=== PATIENT | female | born 1975 | race Caucasian/White ===

== ENCOUNTER 2017-04-05 14:22 | Emergency (ER) | payer BC ==
[2017-04-05 14:28] VITALS: BP 121/69
--- NOTE | 2017-04-05 16:40 | ER Document Report ---
HPI - HPI Patient complains to provider of: Headache Onset: Other - 1 month Onset/Duration: Waxing and waning Quality of pain: Achy Pain Level: 2 Context: Patient presents complaining of headache pain off and on over the past month that seems to have worsened over the past week. Patient additionally complains of right ear pain that occasionally will go behind her eyes and affect the other ear as well. Patient does report occasional popping sounds to the ear. Patient does have a history of MS as well as migraines. Patient took Fioricet while waiting for room and states that the headache pain is almost completely resolved at this time. Patient's daughter is at bedside who is very anxious about patient's headache symptoms. Associated Symptoms: Earache, Headache, Rhinnorhea. denies: Chest pain, Nonproductive cough, Productive cough, Fever, Sore throat Exacerbated by: Denies Relieved by: Denies Similar symptoms previously: Yes Recently seen / treated by doctor: No - ROS ROS below otherwise negative: Yes Systems Reviewed and Negative: Yes All other systems reviewed and negative - CONSTITUTIONAL Constitutional: DENIES: Fever, Chills - EENT EENT: REPORTS: Ear Pain, Congestion. DENIES: Sore Throat - NEURO Neurology: REPORTS: Headache. DENIES: Weakness, Vision blurred - RESPIRATORY Respiratory: DENIES: Coughing - GASTROINTESTINAL Gastrointestinal: DENIES: Nausea, Patient vomiting, Diarrhea - REPRODUCTIVE Reproductive: DENIES: : - MUSCULOSKELETAL Musculoskeletal: DENIES: Back Pain, Neck Pain - DERM Skin Color: Normal Skin Problems: None Past Medical History - General Information source: Patient - Social History Smoking Status: Current Every Day Smoker Smoking Education Provided: Yes Frequency of alcohol use: None Drug Abuse: None Lives with: Family Family History: Reviewed & Not Pertinent - Medical History Medical History: Other - MS - Past Medical History Cardiac Medical History: Denies: Hx Coronary Artery Disease, Hx Heart Attack, Hx Hypertension Pulmonary Medical History: Denies: Hx Asthma, Hx Bronchitis, Hx COPD, Hx Pneumonia Neurological Medical History: Denies: Hx Cerebrovascular Accident, Hx Seizures Endocrine Medical History: Reports: Hx Hyperthyroidism Musculoskeltal Medical History: Denies Hx Arthritis Past Surgical History: Reports: Hx Oral Surgery, Hx Tonsillectomy, Hx Tubal Ligation. Denies: Hx Pacemaker - Immunizations Hx Diphtheria, Pertussis, Tetanus Vaccination: No Vertical Provider Document - CONSTITUTIONAL Agree With Documented VS: Yes Exam Limitations: No Limitations General Appearance: WD/WN, No Apparent Distress - INFECTION CONTROL TRAVEL OUTSIDE OF THE [place] IN LAST 30 DAYS: No - HEENT HEENT: Atraumatic, Normocephalic. negative: Pharyngeal Exudate, Pharyngeal Tenderness, Tympanic Membrane Red, Tympanic Membrane Bulging Mouth Diagram: 1 - Dental decay Notes: No pain with movement of the ears bilaterally Patient does have bilateral TMJ joint popping with range of motion no meningismus - NECK Neck: Normal Inspection, Supple. negative: Lymphadenopathy-Left, Lymphadenopathy-Right Notes: No meningismus - RESPIRATORY Respiratory: Breath Sounds Normal, No Respiratory Distress O2 Sat by Pulse Oximetry: 100 - CARDIOVASCULAR Cardiovascular: Regular Rate, Regular Rhythm, No Murmur - BACK Back: Normal Inspection - MUSCULOSKELETAL/EXTREMETIES Musculoskeletal/Extremeties: MARCO WARREN - NEURO Level of Consciousness: Awake, Alert, Appropriate Motor/Sensory: No Motor Deficit - DERM Integumentary: Warm, Dry, No Rash Course - Re-evaluation Re-evalutation: 04/05/17 16:[address] Emery regarding patient presentation. Agrees with plan to CT image of the head 04/05/17 17:42 Patient does report popping occasionally in the ears. Patient does report chronic sinus issues. Will cover in case for dental infection (given poor dentition) as well as possible eustation tube dysfunction as a source of patient 's pain and popping sensation in her ear. Advised that 1 of her medications that she is currently taking does have the side effect of causing headaches. Patient encouraged to follow-up with her neurologist for further evaluation of her chronic headache symptoms as well as her medication regimen. Patient states that she is ready to go home would like to be discharged at this time. No concern for encephalitis or meningitis at this time. 04/05/17 17:44 - Vital Signs Vital signs: Temp Pulse Resp BP Pulse Ox 98.5 F 97 16 121/69 100 04/05/17 14:26 04/05/17 14:26 04/05/17 14:26 04/05/17 14:26 04/05/17 14:26 - Diagnostic Test Radiology reviewed: Reports reviewed Discharge - Discharge Clinical Impression: Popping of right ear, Hx of multiple sclerosis, Dental caries Headache Qualifiers: Headache type: unspecified Headache chronicity pattern: unspecified pattern Intractability: not intractable Qualified Code(s): R51 - Headache Condition: Stable Disposition: HOME, SELF-CARE Instructions: Amoxicillin ([facility]), Headache ([facility]), Toothache ([facility]) Additional Instructions: Return immediately for any new or worsening symptoms Followup with your primary care provider, call tomorrow to make a followup appointment Follow-up with your neurologist for a recheck. Take your Fioricet they have at home as prescribed to help with her headaches Prescriptions: Amoxicillin 500 mg PO TID #30 tablet Cetirizine HCl [Zyrtec 10 mg Tablet] 1 tab PO DAILY #15 tablet Forms: Smoking Cessation Education Referrals: BRUNA ESPINOZA MD [Primary Care Provider] - Follow up as needed ASHLIE MATA MD [ACTIVE STAFF] - Follow up as needed DONNIE RAJAN MD [EMERITUS] - Follow up tomorrow
--- NOTE | 2017-04-05 17:14 | RADIOLOGY REPORT (SQ) ---
EXAM DESCRIPTION: CT HEAD WITHOUT COMPLETED DATE/TIME: 04/05/2017 4:57 pm REASON FOR STUDY: REIS, hx MS COMPARISON: CT brain 03/02/2014, 10/15/2010 TECHNIQUE: Axial images acquired through the brain without intravenous contrast. Images reviewed wi th bone, brain and subdural windows. Images stored on PACS. All CT scanners at this facility use dose modulation, iterative reconstruction, and/or weight based d osing when appropriate to reduce radiation dose to as low as reasonably achievable (ALARA). [facility]: Dose Right [facility]: CareDose [facility]: Dose Right [facility]: Teradose 4D [facility]: Monkey Bizness RADIATION DOSE: CT Rad equipment meets quality standard of care and radiation dose reduction techniq ues were employed. CTDIvol: 64.6 mGy. DLP: 1034 mGy-cm. mGy. LIMITATIONS: None. FINDINGS: VENTRICLES: Normal size and contour. CEREBRUM: Spotty low attenuation in the bifrontal and biparietal, and left posterior temporal subcort ical and deep white matter compatible with demyelinating lesions from a mass. No CT areas of acute la rge territory ischemic change, acute intracranial hemorrhage, mass effect, or midline shift. CEREBELLUM: No masses. No hemorrhage. No alteration of density. No evidence for acute infarction. EXTRAAXIAL SPACES: No fluid collections. No masses. ORBITS AND GLOBE: No intra- or extraconal masses. Normal contour of globe without masses. CALVARIUM: No fracture. PARANASAL SINUSES: No fluid or mucosal thickening. SOFT TISSUES: No mass or hematoma. OTHER: No other significant finding. IMPRESSION: White matter lesions compatible with clinical history of an mass. No acute large territory ischemic change, acute intracranial hemorrhage, mass effect, or midline shif t. EVIDENCE OF ACUTE STROKE: NO. COMMENT: Quality ID # [id number]: Final reports with documentation of one or more dose reduction techniques (e.g., Automated exposure control, adjustment of the mA and/or kV according to patient size, use of iterative reconstruction technique) TECHNICAL DOCUMENTATION: JOB ID: [id number] [employer]- All Rights Reserved Reading location - IP/workstation name: [email or web address]
[2017-04-05] MEDS ORDERED: AMOXICILLIN TRIHYDRATE 500 MG CAPSULE PO ONE (17:48)
== END 2017-04-05 18:06 | disposition home or self-care (01) ==
LOC: ER 14:22
DX: H93.8X1 Other specified disorders of right ear (principal); R51 Headache; G35 Multiple sclerosis; K02.9 Dental caries, unspecified; H92.01 Otalgia, right ear; J34.89 Other specified disorders of nose and nasal sinuses; F17.200 Nicotine dependence, unspecified, uncomplicated
CPT/HCPCS: 70450; 99283

== ENCOUNTER → 2018-01-20 | Outpatient (CLI) | payer BC ==
[2018-01-22 05:40] LABS: HEPATITS B SURFACE ANTIGEN Negative (Negative)
[2018-01-22 16:43] LABS: HEPATITIS B CORE AB TOT Negative (Negative)
== END ==
LOC: OD 13:09
PROVIDERS: ATTEND Psychiatry & Neurology Neurology
DX: G35 Multiple sclerosis (principal); Z79.899 Other long term (current) drug therapy
CPT/HCPCS: 36415; 86704; 87340